=== PATIENT | male | born 1960 | race Caucasian/White ===

== ENCOUNTER → 2017-04-06 08:16 | Outpatient (CLI) | payer OTHER | END | disposition home or self-care (01) | LOC: D.US 04-05 11:30 | DX: R10.13 Epigastric pain (principal) ==

== ENCOUNTER → 2019-10-19 09:32 | Outpatient (CLI) | payer BC | END | disposition home or self-care (01) | LOC: D.CT 09:32 | PROVIDERS: ATTEND Family Medicine | DX: J32.9 Chronic sinusitis, unspecified (principal); R91.1 Solitary pulmonary nodule ==

== ENCOUNTER 2020-07-14 06:12 | Day surgery (SDC) | payer BC ==
--- NOTE | 2020-07-11 09:39 | HP ---
PATIENT: YESICA GÓMEZ MEDICAL RECORD: [id number] ACCOUNT: [id number] [facility] 60 ADMISSION DATE: 07/14/20 PCP: SUDHIR LOERA MD HISTORY AND PHYSICAL EXAMINATION HISTORY OF PRESENT ILLNESS: Mr. Gómez is 59 years old. He has had lifelong sinus problems. He is having pain, drainage and been refractory to medical management. He has been admitted for sinus surgery. PAST SURGICAL HISTORY: Includes cervical disk fusion and surgery for a broken ankle. CURRENT MEDICATIONS: Cyclobenzaprine, paroxetine, gabapentin, hydrocodone. ALLERGIES: CELEXA, DICLOFENAC, IBUPROFEN. PHYSICAL EXAMINATION: GENERAL: Healthy-appearing, developmentally normal. FACE: Normal, symmetric, no lesions. EYES: Sclerae and conjunctivae are normal. EARS: Canals and TMs are normal. NOSE: He has some mild septal deviation. No masses or polyps. ORAL CAVITY AND OROPHARYNX: Tongue protrudes in midline. Pharynx is normal. NECK: No masses, no adenopathy. CHEST: Clear. CARDIOVASCULAR: Regular rate and rhythm, no murmur. EXTREMITIES: Normal. DIAGNOSTIC DATA: CT opacification of right maxillary sinus, right sphenoid sinus, bilateral ethmoid sinuses. IMPRESSION: Chronic sinusitis. PLAN: Right middle meatal antrostomy, right sphenoidotomy, bilateral ethmoidectomy, bilateral inferior turbinate reduction and left maxillary sinusotomy as well. TRANSINT:[id number] Voice Confirmation ID: [id number] DOCUMENT ID: [id number] ISATU SANTOS MD at 0939 CC: [id number] DICTATION DATE: 07/10/20 151 GAMES MANAGER: 07/10/20 1531 PRE [facility] [address] [place] [address]
[~2020-07-14] VITALS: Ht 177.8 cm; Wt 108.9 kg
--- NOTE | ~2020-07-14 | OP ---
PATIENT NAME: YESICA GÓMEZ MEDICAL RECORD: [id number] :60 [facility] DATE: SURGEON: DONALD ELENA MD DATE OF OPERATION: 07/14/2020 PREOPERATIVE DIAGNOSES: Chronic pansinusitis, nasal obstruction, turbinate hypertrophy. POSTOPERATIVE DIAGNOSES: Chronic pansinusitis, nasal obstruction, turbinate hypertrophy. PROCEDURE: Right middle meatal antrostomy, right ethmoidectomy, right sphenoidotomy, left maxillary antrostomy, left anterior ethmoidectomy, bilateral inferior turbinate reduction. SURGEON: Donald Elena MD ANESTHESIA: General orotracheal. BLOOD LOSS: 5 mL. SPECIMENS: Cultures from right and left maxillary sinus. NASAL PACKING: None. COMPLICATIONS: None. DISPOSITION: Recovery stable. DESCRIPTION OF PROCEDURE: He was brought to the operating room, placed in supine position, sedated and intubated by anesthesia. Both sides of the nose were examined using headlight nasal speculum. The inferior turbinates, uncinate, middle turbinate were injected with a total of 0.5 mL of 1% lidocaine with 1:100,000 epinephrine. Three Afrin pledgets were placed in each side of the nose. He was positioned, prepped and draped in usual sterile fashion for nasal surgery. All the Afrin pledgets were removed from the right side of the nose. The nasal cavity was examined. Middle turbinate was normal. Inferior turbinate was normal. Nasal floor, septum were normal. Nasal vault was normal. No masses, polyps, or drainage. The inferior turbinate was outfractured with a [place] elevator. I lateralized the middle turbinate slightly with a [place]. I was able to visualize the sphenoid ostia, which were edematous. A 2 mm Kerrison punch opened it up inferiorly and slightly inferomedially. I was able to get a 9-[place] suction in the sinus easily really and really no purulence there, but there was significant mucosal edema. I rinsed it out with saline using that same suction repeatedly. Then, backing out, the maxillary sinus was entered. There was copious purulence on the right side, the very thick yellow purulence, no solid material. That was suctioned with a Luki trap for cultures. The sinus was irrigated repeatedly with saline. The nasopharynx was suctioned. Then, the ethmoid cavity was entered inferomedially, going back posteriorly. Really some mucosal edema, but no purulence was seen in the ethmoids. It was all opened up nicely through a nice open middle meatus. The uncinate was taken down somewhat with the microdebrider because there was so much edematous, inflamed tissue around that sinus. Then, there was really no bleeding there. The left side was addressed. All the Afrin pledgets were removed. Maxillary sinus was entered easily, irrigated with a curved olive tip suction and Luki trap was used to get OPERATIVE REPORT [id number] YESICA GÓMEZ specimen for cultures. Then, the ethmoid cavity was entered inferomedially and take down the anterior ethmoids fairly clean. There was a little bit of mucosal edema, but no purulence. The rest of the nasal cavity on the left side was normal. Inferior middle turbinate, nasal vault, and sphenoid ostia all looked good. Both sides were irrigated repeatedly with saline, rinsed out. Both inferior turbinates were medialized with a Warren. Inferior redundant portion was taken down with a [place]. Suction cautery on a setting of 25 was used to stop any bleeding and both outfractured with a [place] elevator. Everything is rinsed really good again with saline. I inspected carefully, cleaned up with small upbiting pediatric forceps any small fragments of mucosa or bone in the ethmoid cavities and then some mupirocin ointment on a large curved olive tip suction was placed in the right maxillary sinus. He was awakened, extubated, and transported to recovery in good condition. No complications. NTS:[id number] Voice Confirmation ID: [id number] DOCUMENT ID: [id number] DONALD ELENA MD CC: [id number] DICTATION DATE: 07/14/20 114 RESERVE OPERATOR: 07/14/202041 [facility] 07/14/20 [facility] [address] [place] [id number]
[~2020-07-14 06:12] MED LIST: ASCORBIC ACID500 MG PO; CYCLOBENZAPRINE10 MG; GABAPENTIN100 MG; GABAPENTIN100 MG PO; HYDROCODON-ACE1 EAC7; PAXIL20 MG PO
[2020-07-14 07:27] VITALS: BP 138/88; Ht 177.8 cm; Wt 108.9 kg
[2020-07-14] MEDS ORDERED: TYLENOL PM (07:40)
[2020-07-14] MEDS ORDERED: ACETAMINOPHEN500 M1 PO (07:40)
--- NOTE | 2020-07-14 13:04 | NUR ---
1215 BNC DC'D. OXYGEN SATURATION IN 97% ON 2L/MIN 1235 PT MAINTAINING OXYGEN SATURATION LEVEL AT 96-97% ON ROOM AIR. PT REPORTED A PAIN LEVEL OF 5 OUT OF 10 AT 1225. PAIN MEDICATION OFFERED TO PATIENT BUT HE STATES THAT HE WANTS TO WAIT UNTIL HE GETS HOME AND WILL TAKE A PAIN PILL THERE. 1236 IV DC'D. CATHETER TIP INTACT. NO BLEEDING AT SITE. DRESSING APPLIED.
== END 2020-07-14 12:50 | disposition home or self-care (01) ==
LOC: D.OPS 06:12
PROVIDERS: ATTEND Otolaryngology
DX: J32.4 Chronic pansinusitis (principal); J34.89 Other specified disorders of nose and nasal sinuses; J34.3 Hypertrophy of nasal turbinates